=== PATIENT | female | born 1955 | race Caucasian/White ===

== ENCOUNTER 2019-04-24 18:02 | Emergency (ER) | payer MEDICARE, SELFPAY ==
[2019-04-24 18:15] VITALS: BP 166/110; PULSE 97; RESP 18; TEMP 37; O2SAT 100
[2019-04-24 18:28] LABS: Basophils Percent Auto 0.9 % (0.2-1.2); Eosinophils Absolute Auto 0.1 K/mm3 (0-0.3); Eosinophils Percent Auto 1.5 % (0-4.4); Hematocrit 41.4 % (37.0-47.0); Hemoglobin 13.7 g/dL (12.0-15.0); Immature Granulocyte Absolute 0.01 K/mm3 (0.00-0.031); Immature Granulocyte Percent A 0.2 % (0-0.5); Lymphocytes Absolute Auto 1.18 K/mm3 (0.9-3.2); Lymphocytes Percent Auto 26.1 % (18.3-44.2); Mean Corpuscular HGB Conc 33.1 g/dl (32-36); Mean Corpuscular Hemoglobin 30.3 pg (26-34); Mean Corpuscular Volume 91.6 fl (80-100); Mean Platelet Volume 10.2 fl (7.4-10.4); Monocytes Absolute Auto 0.3 K/mm3 (0.1-0.6); Monocytes Percent Auto 6.9 % (2.6-8.5); Neutrophils Absolute Auto 2.9 K/mm3 (1.3-6.7); Neutrophils Percent Auto 64.4 % (45.5-73.1); Platelet Count Result 185 k/mm3 (150-375); Red Blood Count 4.52 M/mm3 (4.2-5.4); Red Cell Distribution Width 13.2 % (11.5-14.5); White Blood Count 4.5 K/mm3 (4.5-10.0)
[2019-04-24 18:45] LABS: Alanine Aminotransferase 20 U/L (4-35); Albumin Level 3.8 g/dL (3.5-5.1); Alkaline Phosphatase 101 U/L (38-126); Aspartate Amino Transferase 29 U/L (14-36); Bilirubin,Total 0.3 mg/dL (0.2-1.3); Blood Urea Nitrogen 20 mg/dL (7-17); Calcium 8.7 mg/dL (8.4-10.2); Carbon Dioxide 26 mmol/L (22-30); Chloride 105 mmol/L (98-107); Estimated Glomerular Filt Rate 56; Glucose 116 mg/dL (65-105); Potassium 3.8 mmol/L (3.4-5.0); Sodium 140 mmol/L (137-145)
--- NOTE | 2019-04-24 19:45 | PC.NURSE ---
Patient and daughter up to desk, states they are going home. Patient aox4, denies any current complaints. States, I'll call Naseer in the morning. Patient explained she feels fine and I know they don't do anything but monitor me anyway and my neurologist told me he needed to up my dose the next time I had a seizure. Explained to patient that she can come back to be seen at anytime. Patient left prior to seeing provider.
[2019-04-28 08:03] LABS: Levetiracetam Keppra 26.9 mcg/mL (12.0-46.0)
== END 2019-04-24 19:45 | disposition left against medical advice (07) ==
PROVIDERS: Emergency Provider Emergency Medicine; PCP Internal Medicine
DX: Z53.21 Procedure and treatment not carried out due to patient leaving prior to being seen by health care provider (principal)
CPT/HCPCS: 36415; 80053; 80177; 85025; 99199

== ENCOUNTER 2019-07-28 11:35 | Outpatient (CLI) | payer MEDICARE, SELFPAY ==
[2019-07-28 12:28] LABS: Basophils Percent Auto 0.6 % (0.2-1.2); Eosinophils Absolute Auto 0.2 K/mm3 (0-0.3); Eosinophils Percent Auto 3.9 % (0-4.4); Hematocrit 42.8 % (37.0-47.0); Hemoglobin 14.1 g/dL (12.0-15.0); Immature Granulocyte Absolute 0.01 K/mm3 (0.00-0.031); Immature Granulocyte Percent A 0.2 % (0-0.5); Mean Corpuscular HGB Conc 32.9 g/dl (32-36); Mean Corpuscular Hemoglobin 30.4 pg (26-34); Mean Corpuscular Volume 92.2 fl (80-100); Monocytes Absolute Auto 0.4 K/mm3 (0.1-0.6); Monocytes Percent Auto 8.1 % (2.6-8.5); Neutrophils Absolute Auto 2.9 K/mm3 (1.3-6.7); Neutrophils Percent Auto 56.2 % (45.5-73.1); Platelet Count Result 230 k/mm3 (150-375); Red Blood Count 4.64 M/mm3 (4.2-5.4); Red Cell Distribution Width 13.2 % (11.5-14.5); White Blood Count 5.2 K/mm3 (4.5-10.0)
[2019-07-28 12:41] LABS: Alanine Aminotransferase 23 U/L (4-35); Albumin Level 3.9 g/dL (3.5-5.1); Alkaline Phosphatase 101 U/L (38-126); Aspartate Amino Transferase 34 U/L (14-36); Bilirubin,Total 0.3 mg/dL (0.2-1.3); Blood Urea Nitrogen 27 mg/dL (7-17); Calcium 8.9 mg/dL (8.4-10.2); Carbon Dioxide 31 mmol/L (22-30); Chloride 101 mmol/L (98-107); Cholesterol 137 mg/dL (0-200); Estimated Glomerular Filt Rate 50; Glucose 94 mg/dL (65-105); HDL Direct 43 mg/dL; Potassium 4.4 mmol/L (3.4-5.0); Sodium 137 mmol/L (137-145); Triglycerides 98 mg/dL (<150)
[2019-07-28 12:52] LABS: LDL Cholesterol Direct 68 mg/dL
[2019-07-28 13:22] LABS: Hemoglobin A1C 5.8 % (<5.7)
== END 2019-07-28 11:36 | disposition home or self-care (01) ==
PROVIDERS: PCP Internal Medicine; Referring Provider Internal Medicine Cardiovascular Disease; Visit Provider Nurse Practitioner
DX: E78.5 Hyperlipidemia, unspecified (principal); I25.10 Atherosclerotic heart disease of native coronary artery without angina pectoris; Z68.41 Body mass index [BMI] 40.0-44.9, adult; Z79.899 Other long term (current) drug therapy
CPT/HCPCS: 36415; 80053; 80061; 83036; 85025

== ENCOUNTER 2020-02-12 20:04 | Emergency (ER) | payer MEDICARE, SELFPAY ==
[2020-02-12] VITALS (10 sets, daily range): BP systolic 148–177; BP diastolic 90–146; PULSE 91–111; RESP 16–28; TEMP 36.8; O2SAT 95–100
--- NOTE | ~2020-02-12 | CT_ITS ---
EXAMINATION: CTA brain carotid EXAM DATE: 02/12/2020 21:08 INDICATION: Left-sided facial droop. TECHNIQUE: Spiral CTA of the carotid arteries was performed with intravenous injection 100 cc of Om nipaque 350. Axial, coronal, sagittal reformatted images reviewed. Additional reformatted images cre ated on dedicated 3-D workstation. NASCET comparable standard used to assess the degree of arterial stenosis. Spiral CT angiogram cerebral arteries performed with the same intravenous injection of con trast. Source images of the brain CTA transferred to dedicated workstation for 3-D rotational image c reation. Coronal, sagittal maximum intensity pixel images also reviewed. The dose-length product (D LP) for this examination was 1014.77 mGy-cm. The exposure was tailored according to patient size, a nd iterative reconstruction (ASIR) was used as additional dose reduction technique. Correlation is ma de to noncontrast head CT from earlier 02/11. FINDINGS: There is right carotid bulb calcified and noncalcified plaque narrowing the lumen to 2.3 mm , 45% stenosis. Left carotid bulb arterial sclerosis with 0% stenosis. There is bilateral carotid sip hon smooth arterial sclerosis without stenosis. There is occluded right M1 segment with reconstitutio n of M2 segments. Scattered bilateral vertebral artery arterial sclerosis. There is left-sided auto air conditioning mechanic ior communicating artery dominant posterior cerebral artery. There is no carotid or vertebral basil ar arterial dissection or fibromuscular dysplasia. There are no cerebral artery aneurysms. The sagitt al, transverse and sigmoid sinuses enhance normally, no venous sinus thrombosis. Internal cerebral ve ins also enhance normally. Small to moderate-sized old right frontal lobe infarctions. IMPRESSION: 1. Occluded right M1 segment with reconstitution of M2 segments. Could be acute thromboembolic occlu iván. 2. Right carotid bulb 45% stenosis. 0% stenosis on the left. 3. Old right frontal lobe infarctions. STAT Rad radiologist phoned, discussed this case with clinician as per documentation in their report, which was faxed and scanned into PACS with this exam. Reviewed, dictated and finalized at location A. R OPERATOR IMPRESSION: 1. Occluded right M1 segment with reconstitution of M2 segments. Could be acut e thromboembolic occlusion. 2. Right carotid bulb 45% stenosis. 0% stenosis on the left. 3. Old right frontal lobe infarctions. STAT Rad radiologist phoned, discussed this case with clinician as per document ation in their report, which was faxed and scanned into PACS with this exam.
--- NOTE | ~2020-02-12 | CT_ITS ---
EXAMINATION: CT brain wo con DATE: 02/12/2020 20:13 INDICATION: Left-sided facial droop. TECHNIQUE: Computed tomography (CT) of the head was performed without intravenous contrast. The dose- length product was 605.33 mGy-cm. Automated exposure control and iterative reconstruction technique w ere employed. COMPARISON: CT dated 10/31/2018 FINDINGS: Chronic right frontal lobe infarctions. There is intracranial atherosclerosis. Basilar cist erns are patent. No ventriculomegaly or midline shift. Paranasal sinuses are unremarkable. There is s oft tissue opacification of the left mastoid air cells. No depressed skull fractures IMPRESSION: 1. No acute intracranial abnormality. 2: Chronic right frontal lobe infarctions. As per stroke protocol, I called these results to emergency room, discussed with Dr. Pavel ackerman at 02/12/2020 20:16 PAYROLL ACCOUNTING MANAGER. Reviewed, dictated and finalized at location A. OLL ACCOUNTING MANAGER IMPRESSION: 1. No acute intracranial abnormality. 2: Chronic right frontal lobe infarctions. As per stroke protocol, I called these results to emergency room, discussed wit h Dr. Pavel Beckwith at 02/12/2020 20:16 PAYROLL ACCOUNTING MANAGER.
--- NOTE | ~2020-02-12 | XR_ITS ---
XR chest 1V portable 02/12/2020 20:33 Indication: CVA. Dyspnea. Procedure: AP portable chest Comparison: Comparison to multiple prior studies sequentially, with oldest reviewed study dated 07/11. Findings: Moderate cardiomegaly. No focal air space disease, pulmonary edema, pleural effusion or sofia pected pneumothorax. There is a stable position to right ventricular pacemaker. Impression: 1: No acute cardiopulmonary disease. Reviewed, dictated and finalized at location A. LMER APPRENTICE Impression: 1: No acute cardiopulmonary disease.
--- NOTE | 2020-02-12 20:06 | ECG_ITS ---
Measurements Intervals [place] Rate: 96 P: AL: 0 QRS: 40 QRSD: 101 T: 50 QT: 362 QTc: 459 Interpretive Statements ATRIAL FIBRILLATION CANNOT RULE OUT SEPTAL INFARCT, AGE INDETERMINATE BORDERLINE ST-T WAVE ABNORMALITY- INF/HIGH LAT LEADS BASELINE ARTIFACT- I, II, III, AVR, AVL, AVF ABNORMAL ECG Electronically Signed On 02-13-2020 11:09:43 X RAY EQUIPMENT TESTER by Matt Toro D.O.
--- NOTE | 2020-02-12 20:21 | ED.NEUROSD ---
HPI - Neuro Symptoms/Deficit General Chief Complaint: Suspected CVA Stated Complaint: CVA?? Time Seen by Provider: 02/12/20 20:16 Source: RN notes reviewed History of Present Illness HPI Narrative: Patient presents to emergency department from home via EMS for left-sided weakness. The patient states approximately 45 minutes prior to arrival her approximately 1915 she had right-sided headache followed by left-sided weakness. This time the patient has weakness in her left arm and leg as well as slurred speech and left-sided facial droop. She states she is currently on Xarelto for atrial fibrillation with her last dose last night she denies any recent illness denies any fevers or chills chest pain shortness of breath abdominal pain or any other symptoms Related Data Home Medications Medication Instructions Recorded Confirmed furosemide 40 mg tablet 40 mg PO QAM 02/20/19 levetiracetam 500 mg tablet 500 mg PO Q12H 02/20/19 losartan 100 mg tablet 100 mg PO DAILY 02/20/19 metoprolol tartrate 50 mg tablet 50 mg PO Q12H 02/20/19 pravastatin 40 mg tablet 40 mg PO DAILY 02/20/19 rivaroxaban 20 mg tablet 20 mg PO DAILY 02/20/19 Allergies Allergy/AdvReac Type Severity Reaction Status Date / Time No Known Allergies Allergy Verified 08/18/18 17:11 Review of Systems Review of Systems: Narrative: Gen.: Denies fevers or chills Eyes: Denies eye pain or visual change ENT: Denies congestion Respiratory: Denies shortness of breath or cough CV: Denies chest pain or palpitations GI: Denies abdominal pain nausea, emesis or diarrhea Musculoskeletal: Denies back pain or muscle pain Neuro: See HPI Skin: Denies rash Except as documented, all other systems reviewed and negative [facility] Past Medical History Medical History (Updated 02/12/20 @ 22:18 by Pavel Beckwith DO) Aortic stenosis Atrial fibrillation Pulmonary hypertension Social History Social History Years smoked: 20 Smoking status: Current every day smoker Tobacco type: cigarettes Alcohol intake: never Substance use: never Gender identity (if verbalized by the patient): Female Exam Narrative: Exam Narrative: APPEARANCE: No acute distress, nontoxic, resting in bed EYES: EOMI, PERRL, unable to move eyes past midline to the left HEENT: Normocephalic, atraumatic, OMM RESPIRATORY: No respiratory distress Clear to auscultation bilaterally with no rhonchi wheezing or rales. CARDIOVASCULAR: Irregular irregular without murmurs rubs or gallops. ABDOMINAL: Soft, nontender, nondistended, no rebound or guarding MUSCULOSKELETAl: Moves all extremities. No clubbing, cyanosis or edema. NEURO: Awake and alert x 4, left-sided facial droop, slurred speech, no aphasia muscle strength 5 out of 5 in right upper extremity right lower extremity muscle strength 3 out of 5 in left upper extremity left lower extremity SKIN:: Warm, dry. No rashes lesions or abrasions PSYCHIATRIC: Normal affect/mood, Course Course Emergency Course: Following initial evaluation I called and discussed with [facility] stroke team Dr. Sherman. At this time recommends patient receive a CT of the brain with the patient on Xarelto recommends a factor Xa be obtained if in-house available agrees the patient is not a TPA candidate at this time with Xarelto Called and discussed with lab and factor X a is a send out CTA again recalled discussed with Dr. Sherman. The patient is a candidate for thrombectomy but is not a TPA candidate secondary to Xarelto. At this time Dr. Sherman states that this is a time critical diagnosis and recommends transport by air Discussed with patient plan for transfer and thrombectomy in agreement at this time the patient is due for her evening dose of Keppra which she takes 750 mg twice a day will order at this time she did take this morning. The patient states she lives at home and does use a walker but performs all ADLs she was with
[2020-02-12 20:39] LABS: Basophils Percent Auto 0.6 % (0.2-1.2); Eosinophils Absolute Auto 0.2 K/mm3 (0-0.3); Eosinophils Percent Auto 3.5 % (0-4.4); Hematocrit 42.1 % (37.0-47.0); Hemoglobin 14.1 g/dL (12.0-15.0); Immature Granulocyte Absolute 0.01 K/mm3 (0.00-0.031); Immature Granulocyte Percent A 0.2 % (0-0.5); Lymphocytes Absolute Auto 1.77 K/mm3 (0.9-3.2); Lymphocytes Percent Auto 28.1 % (18.3-44.2); Mean Corpuscular HGB Conc 33.5 g/dl (32-36); Mean Corpuscular Hemoglobin 30.7 pg (26-34); Mean Corpuscular Volume 91.7 fl (80-100); Mean Platelet Volume 10.5 fl (7.4-10.4); Monocytes Absolute Auto 0.4 K/mm3 (0.1-0.6); Neutrophils Absolute Auto 3.8 K/mm3 (1.3-6.7); Neutrophils Percent Auto 60.6 % (45.5-73.1); Platelet Count Result 186 k/mm3 (150-375); Red Blood Count 4.59 M/mm3 (4.2-5.4); Red Cell Distribution Width 13.4 % (11.5-14.5); White Blood Count 6.3 K/mm3 (4.5-10.0)
--- NOTE | 2020-02-12 20:40 | PC.NURSE ---
Patient sat upright given 5ml water-patient immediately started coughing and water dripped out of mouth--Dr Beckwith made aware
[2020-02-12 20:48] LABS: INR 1.2; Prothrombin Time 15.6 Seconds (11.1-14.7)
[2020-02-12 20:49] LABS: Partial Thromboplastin Time 34.5 SECONDS (22.3-36.8)
[2020-02-12 20:50] LABS: Anion Gap 4 mmol/L (8-16); Blood Urea Nitrogen 18 mg/dL (7-17); Calcium 8.7 mg/dL (8.4-10.2); Carbon Dioxide 30 mmol/L (22-30); Chloride 106 mmol/L (98-107); Estimated CRCL calculation 61 ml/min; Estimated Glomerular Filt Rate 55; Glucose 110 mg/dL (65-105); Potassium 3.6 mmol/L (3.4-5.0); Sodium 140 mmol/L (137-145)
[2020-02-12 21:02] LABS: Troponin I 0.012 ng/mL (0.000-0.034)
[2020-02-12 21:09] LABS: Glucose Point of Care 96 (65-105)
[2020-02-12 21:15] LABS: Estimated CRCL calculation 61 ml/min; Estimated Glomerular Filt Rate 55
--- NOTE | 2020-02-12 22:19 | PC.NURSE ---
contacted [facility] to fly patient to [facility] 10 minutes
[2020-02-12] MEDS: levETIRAcetam IV 750 MG in DEXTROSE 5% 100 ML 430 MG IVPB (22:28)
--- NOTE | 2020-02-12 22:35 | PC.NURSE ---
[facility] has arrived
== END 2020-02-12 22:30 | disposition short-term general hospital (02) ==
PROVIDERS: Emergency Provider Emergency Medicine; PCP Internal Medicine
DX: I63.9 Cerebral infarction, unspecified (principal); R29.714 NIHSS score 14; I48.91 Unspecified atrial fibrillation; Z79.01 Long term (current) use of anticoagulants; I27.20 Pulmonary hypertension, unspecified; I35.0 Nonrheumatic aortic (valve) stenosis; F17.210 Nicotine dependence, cigarettes, uncomplicated; R94.31 Abnormal electrocardiogram [ECG] [EKG]
CPT/HCPCS: 36415; 70450; 70496; 70498; 71045; 80048; 82948; 84484; 85025; 85610; 85730; 93005; 96374; 99285; J1953; Q9967